=== PATIENT | female | born 1975 | race Hispanic/Latino ===

== ENCOUNTER 2022-08-01 06:15 | Emergency (ER) | payer BC, MEDICAID, OTHER ==
[~2022-08-01] VITALS: Ht 162.6 cm; Wt 98.9 kg
[2022-08-01] MEDS ORDERED: 0.9%NACL 1000ML 1,000 ML IV ONE ×2 (06:38→07:00)
[2022-08-01] MEDS ORDERED: ONDANSETRON 4MG INJ ONE (06:38)
[2022-08-01] MEDS ORDERED: ONDANSETRON 4MG INJ IVP ONE (07:00)
[2022-08-01 07:09] LABS: BASOPHILS % (AUTO) 0.2 % (0.0-5.0); EOSINOPHILS % (AUTO) 2.8 % (0.0-8.0); HEMATOCRIT 45.7 % (36-48); LYMPHOCYTES % (AUTO) 18.5 % (21.0-51.0); MEAN CORPUSCULAR HEMOGLOBIN 26.1 pg (27.0-33.0); MEAN CORPUSCULAR HGB CONC 30.9 g/dL (32.0-36.0); MEAN CORPUSCULAR VOLUME 84.6 fL (79-99); PLATELET COUNT (AUTO) 298 K/uL (130-400); RED CELL DISTRIBUTION WIDTH 14.6 % (11.0-15.5); WHITE BLOOD COUNT (AUTO) 13.1 K/uL (4.8-10.8)
[2022-08-01 07:16] LABS: APPEARANCE,URINE CLOUDY (CLEAR); BILIRUBIN,URINE NEGATIVE (NEGATIVE); COLOR,URINE YELLOW (YELLOW); GLUCOSE, URINE (UA) 150 mg/dL (NEGATIVE); KETONES,URINE NEGATIVE (NEGATIVE); LEUKOCYTE ESTERASE ,URINE NEGATIVE Leu/uL (NEGATIVE); NITRATE,URINE NEGATIVE (NEGATIVE); OCCULT BLOOD,URINE NEGATIVE (NEGATIVE); PH,URINE 5.5 (5.0-8.0); PROTEIN,URINE 50 mg/dL (NEGATIVE); UROBILINOGEN,URINE 0.2 mg/dL (0.2-1.0)
[2022-08-01 07:21] LABS: ALBUMIN 3.4 g/dL (3.5-5.0); CREATININE 0.8 mg/dL (0.5-1.5); POTASSIUM 4.3 mmol/L (3.5-5.1); TOTAL PROTEIN, SERUM 8.4 g/dL (6.0-8.3)
[2022-08-01] MEDS ORDERED: KETOROLAC 15MG/ML VIAL (15MG/ML) IV ONE (07:30)
[2022-08-01] MEDS ORDERED: LOPERAMIDE HCL 2 MG CAP PO ONE (07:30)
[2022-08-01 07:33] LABS: BACTERIA,URINE FEW /HPF (None Seen); MUCUS,URINE MOD LPF (None Seen); SQUAMOUS EPITHELIAL CELL,UR MOD /HPF (0-2)
[2022-08-01 10:38] VITALS: BP 113/68
[2022-08-01] MEDS ORDERED: CIPR-278 PO (11:07)
[2022-08-01] MEDS ORDERED: LOPE2CAP PO (11:07)
[2022-08-01] MEDS ORDERED: ONDA4TAB10 PO (11:07)
== END 2022-08-01 11:41 | disposition home or self-care (01) ==
LOC: EDH 06:15
DX: K52.9 Noninfective gastroenteritis and colitis, unspecified (principal); E86.0 Dehydration; R10.9 Unspecified abdominal pain; E11.9 Type 2 diabetes mellitus without complications; J45.909 Unspecified asthma, uncomplicated; Z88.0 Allergy status to penicillin
CPT/HCPCS: 99284; 74176; 96374; 96361; 96375; 82150; 80053; 83690; 85025; 81001; 81025; 36415; J7030; J2405; J1885

== ENCOUNTER → 2025-01-30 | Outpatient (CLI) | payer OTHER ==
[~2025-01-30] MED LIST: CIPR-278 PO; LOPE2CAP PO; ONDA-243 PO
--- NOTE | 2025-01-31 14:23 | HMCIMG ---
EXAM: CT Cardiac calcium scoring. CLINICAL HISTORY: CAD screening. TECHNIQUE: Thin collimated axial CT cardiac images were obtained. A CT scan is done according to ALARA (As Low As Reasonably Achievable). CONTRAST: None. COMPARISON: None provided. FINDINGS: Calcium Score: VESSEL Number of lesions Volume mm3 Equi. Mass/mg Calcium score LM 0 00.00 00.00 00.00 LAD 0 00.00 00.00 00.00 LCX 0 00.00 00.00 00.00 RCA 0 00.00 00.00 00.00 Total 0 00.00 00.00 00.00 IMPRESSION: The calcium score is 0. This places the patient into 0th percentile in comparison to a group of patients asymptomatic for coronary artery disease with the same age and gender. This means that 0% of females aged 45-49 have a calcium score that is lower than the patient's. /[place]
== END | disposition home or self-care (01) ==
LOC: RAH 11:23
PROVIDERS: ATTEND Nurse Practitioner Family
DX: Z13.6 Encounter for screening for cardiovascular disorders (principal); I25.10 Atherosclerotic heart disease of native coronary artery without angina pectoris
CPT/HCPCS: 75571